=== PATIENT | male | born 1975 | race Caucasian/White ===

== ENCOUNTER 2016-06-07 09:17 | Day surgery (SDC) | payer OTHER ==
[~2016-06-07] VITALS: Ht 167.6 cm; Wt 106.1 kg
[2016-06-07] VITALS (9 sets, daily range): BP systolic 112–132; BP diastolic 58–75; PULSE 66–78; RESP 14–22; O2SAT 92–97
[~2016-06-07 09:17] MED LIST: ATOR20TA PO; Clindamycin Inj 600 MG in IV Premix 1 EACH IV SCH; LISI40TA PO; Lactated Ringer's 1,000 ML IV SCH; THYR30TA2 PO
[2016-06-07] MEDS ORDERED: MetoCLOpramide 5 mg/mL 2 mL Inj ONE (09:18)
[2016-06-07] MEDS ORDERED: Dexamethasone 4 mg/mL Inj ONE (09:18)
[2016-06-07] MEDS ORDERED: fentaNYL-PF 50 mCg/mL 2 mL Inj ONE (09:18)
[2016-06-07] MEDS ORDERED: Bupivacaine-MPF 0.5% W/EPI 30 mL Inj ONE (09:18)
[2016-06-07] MEDS ORDERED: Ondansetron 2 mg/mL 2 mL Inj ONE (09:18)
[2016-06-07] MEDS ORDERED: Propofol 10,000 mCg/mL 20 mL Inj ONE (09:18)
[2016-06-07] MEDS ORDERED: Lidocaine PF 1% 30 mL Inj ONE (09:18)
[2016-06-07] MEDS ORDERED: Clindamycin 600 mg/50 mL D5W Premix IV ONE (09:23)
[2016-06-07] MEDS ORDERED: Lactated Ringer's 1,000 ML IV ONE ×2 (10:02→15:20)
--- NOTE | 2016-06-07 11:40 | PCM.HPANE ---
Patient Data Date of Service: Jun 07, 2016 Surgeon Admitting Provider: Attending Provider:Valentin Myers MD Primary Care Physician:Other,Physician Other Provider:Estella Velasco Anesthesia Reason for Visit Right Shoulder Labral Tear Ht/WT & BMI Height (Feet): 5 Height (Inches): 6.00 Weight (Kilograms): 106.140 Body Mass Index 37.00 Allergies Coded Allergies: Penicillins (Verified Allergy, Unknown, hives, 06/02/16) brompheniramine (Verified Allergy, Unknown, 06/04/16) ENTERED FROM UNCODED ALLERGIES iodine (Verified Allergy, Unknown, 06/02/16) phenylpropanolamine (Verified Allergy, Unknown, 06/04/16) ENTERED FROM UNCODED ALLERGIES Uncoded Allergies: DIMETAPP (Allergy, Unknown, 06/02/16) Past Anesthesia History Anesthesia History: Denies:: Anesthesia Reactions Diabetes History Hx Diabetes?: No MRSA MRSA: No Medications Hypertension Medication: Yes Home Meds Incl Beta Harmeet: No Reported Medications Lisinopril 40 Mg [id number] Mg PO DAILY 30 Days Ref 0 06/02/16 Atorvastatin (Lipitor)20 Mg [id number] Mg PO DAILY Ref 0 06/02/16 Thyroid,Pork (Lysite Thyroid)30 Mg [id number] Mg PO DAILY 06/02/16 History History of ENT Problems?: No Hx of Heart Problems?: Yes Cardiovascular History: Positive for:: Hypertension Denies:: AICD Chest Pain Heart Murmur Irregular Heartbeat Pacemaker Peripheral Vascular Other Cardiac History: no sob; hyperlipidemia Hx of Respiratory Problem?: Yes Respiratory History: Positive for:: Use of C-PAP Machine Denies:: Asthma COPD Emphysema Oxygen Administration Pneumonia Tuberculosis Use of Inhalers / NEBS Other Resp Pertinent History: LAVERN compliant w/ CPAP Hx Neurologic Problems?: No Neurological History: Denies:: CVA Multiple Sclerosis Parkinson's Disease Seizures Hx of GI Problems?: Yes Gastrointestinal History: Positive for:: Diverticulitis (recent tx with ABX- course ended 05/14/16) Denies:: Gastroesphageal Reflux Gastrointestinal Bleeding Heartburn Hepatitis Hiatal Hernia Hx of Problems?: No Male Hx: Denies:: Prostate Problems Scrotal Mass Testicular Surgery Skin History: Denies:: History Skin Disorders? Pressure Ulcers Hx Musculoskeletal Problems?: Yes Musculoskeletal History: Positive for:: Musculoskeletal Trauma (right shoulder current admission problem) Hx of Psycho/Social Problems?: No Hx Surgeries?: Yes (RIH, thyroidectomy) Hx Any Other Health Problems?: Yes Other History: Positive for:: Thyroid Disease (hypothyroid) Denies:: Cancer Hx Diabetes: No Other Pertinent History: Gout Hx Substance Use: NoHave You Smoked inLast 12 mo: No Stop/Bang Treated for Sleep Apnea?: Yes Do You Have a CPAP Machine?: Yes S-Snoring: Do You Snore Loudly: No T-Tired: feel tired, fatigued: No O-Obsered: Observed not breath: Yes P-Blood Pressure: treated: Yes B- Body Mass Index > 35 kg/m2: No A- Age over 50: No N- Neck Large Circumference: No G- Gender Male: Yes LAVERN Total Score: 3 LAVERN Risk Assessment: High Risk, =/>3 Yes LAVERN Category 1: Yes Risk Assessment Category Category 1A: Patient has history of documented sleep apnea, and HAS NOT received any narcotic, sedative or anesthesia administration during this stay. Category 1B: Patient has history of documented sleep apnea, and HAS received any narcotic , sedative or anesthesia administration during this stay Category 2: Patient has SUSPECTED Obstructive Sleep Apnea, and HAS received any narcotic , sedative or anesthesia administration during this stay. Category 3: Patient has SUSPECTED Obstructive Sleep Apnea and HAS NOT received narcotic, sedative or anesthesia administration during this stay. Category 4: Outpatient in Procedural Areas with known sleep apnea or who screen positive for High Risk via the STOP/BANG questionnaire. Exam Exam Vital Signs Vital Signs Date Time Temp Pulse Resp B/P Pulse Ox O2 Delivery O2 Flow Rate FiO2 06/07/16 10:04 36.3 66 14 125/75 97 Room Air General Appearance: Alert, Oriented X3, Cooperative, No Acute Distress HEENT/AIRWAY: MP 2, Neck Movement (short, thick, FROM), Mouth Opening (>3), Other (tmd3) Lungs: Normal Air Movement Heart: Exam Unremarkable, Regular Rate/Rhythm, Normal S1, Normal S2, No Murmurs /Rubs/Gallops Meds/Labs/Diagnostics Admission Meds Current Medications Lactated Ringer's (Lr) 1,000 ml @ ud STK-MED ONCE IV Last administered on t 10:02; Start 06/07/16 at 10:02; Stop 06/07/16 at 10:03; Status DC Plan Impression Patient chart reviewed, patient interviewed and anesthestic plan with risks, benefits, and alternatives discussed, and informed consent obtained. NPO Status: 06/06@1800 ASA Physical Status: ASA2 Mod Systemic Disease Anesthetic Plan: GA, Regional Block (brachial plexus block - supraclavicular approach per surgeon request for post-op pain) Bene/Risks/Altern/Consents: Yes HP Complete Prior to Induction: Yes Franc Silva MD Jun 07, 2016 11:40
[2016-06-07] MEDS ORDERED: HYDROcodone-APAP 5-325 mg Tablet PO PRN (13:40)
[2016-06-07] MEDS ORDERED: Ketorolac 15 mg/mL Inj IVPUSH ONE (13:40)
[2016-06-07] MEDS ORDERED: Ropivacaine-PF 0.5% 30 mL Inj INJ ONE (14:01)
[2016-06-07] MEDS ORDERED: Lactated Ringer's 500 ML IV PRN (14:54)
[2016-06-07] MEDS ORDERED: Lactated Ringer's 1,000 ML IV SCH (14:54)
[2016-06-07] MEDS ORDERED: Phenylephrine 10,000 mCg/mL Inj IVPUSH PRN (14:55)
[2016-06-07] MEDS ORDERED: fentaNYL-PF 50 mCg/mL 2 mL Inj IVPUSH PRN (14:55)
[2016-06-07] MEDS ORDERED: Dexamethasone 4 mg/mL Inj IVPUSH PRN (14:55)
[2016-06-07] MEDS ORDERED: HYDROmorphone 1 mg/mL Inj IVPUSH PRN (14:55)
[2016-06-07] MEDS ORDERED: MetoCLOpramide 5 mg/mL 2 mL Inj IVPUSH PRN (14:55)
[2016-06-07] MEDS ORDERED: Ondansetron 2 mg/mL 2 mL Inj IVPUSH PRN (14:55)
[2016-06-07] MEDS ORDERED: EPHEDrine Sulfate 50 mg/mL Inj IVPUSH PRN (14:55)
--- NOTE | 2016-06-07 15:46 | PCM.ORTHOP ---
Orthopedic Operative Report Date of Service: Jun 07, 2016 Pre Operative Diagnosis Right shoulder anterior labral tear, impingement syndrome, acromioclavicular joint arthritis Post Operative Diagnosis Right shoulder anterior labral tear, impingement syndrome, acromioclavicular joint arthritis Procedure Right shoulder arthroscopy, labral repair, subacromial decompression, distal clavicle excision Surgeon Surgeon: Valentin Myers MD Assistants: Darlene Feldman Indication for Procedure Right shoulder instability, anterior labral tear, impingement syndrome Findings per dictation Details of Procedure STAFFING COORDINATOR SURGEON: During the operation, the services of physician surgical scheduler were medically indicated and necessary to provide exposure of the operative site for the surgical procedure and to maintain the limb in a proper position to carry out the operation safely and efficiently. Without the qualified medical laboratory assistant being present, it would have extended the operative procedure and made the procedure technically more difficult to perform. INDICATIONS: The patient is Ken Fuentes is a 40-year-old male who has developed recurrent instability of the right shoulder. X-rays show the glenohumeral joint to be well maintained. The risks, benefits, and alternatives of surgery were discussed with the patient. The risks included but were not limited to infection, bleeding, damage to vessels and nerves, loss of motion, continued pain, complications due to anesthesia including myocardial infarction, stroke, , etc. The patient stated understanding of the nature of the surgical procedure and gave written and verbal consent to proceed. PROCEDURE: The patient was brought into the operating room and placed supine on the operating room table. A supraclavicular block was placed in the right shoulder for postoperative pain management, followed by the administration of general anesthesia. Preoperative antibiotics was given The patient was then placed into the lateral decubitus position with the right side up. An axillary role was placed and the legs were padded as necessary to avoid pressure points. The patient was maintained in position with a beanbag evacuation device. A thorough examination of the right shoulder under anesthesia was performed. The patient had 120 degrees of forward elevation and 110 degrees of abduction. In 90 degrees of abduction the patient had a degrees of external rotation and 70 degrees of internal rotation. The right shoulder was then examined for stability. In neutral rotation there was 4/5 anterior instability. The right upper extremity was then prepped and draped in the usual fashion. The arm was suspended with a well-padded sleeve with eight pounds of balanced suspension in the arthroscopic position. A standard posterior portal was made inferior and medial to the posterior corner of the acromion. The incision was made only through skin. The trocar was advanced through the soft tissue with a blunt- tipped obturator. This was inserted into the glenohumeral joint without difficulty. The arthroscope was placed through the cannula and attached to the video monitor system. Inflow was achieved using the arthroscopic pump. The pressure was maintained at 35-40 mm of mercury throughout the entire procedure. Once the arthroscope confirmed visualization within the shoulder joint, it was advanced anteriorly into the rotator interval beneath the biceps tendon. A Wissinger kristy was then used to create the anterior portal from inside-out. A second anterior stab wound incision was made only through skin and an anterior cannula was placed. A routine arthroscopic survey was begun Survey: Anterior labral tear from 1:00 to 5:00 Complex surgical procedure: This was an extremely complex surgical procedure which took approximately 30-40% longer to complete than a standard repair. Without the use of a qualified first aid director, this surgical procedure would have taken even considerably longer and been unable to be performed arthroscopically Anterior labral bankart repair, no remplissage: Attention was then directly toward anterior labral repair. An anterior mid-glenoid portal was established with an outside in technique just above the subscapualris. With the arthroscope in the anterior superior viewing portal there was evidence of significant tearing of the anterior inferior labrum, Bankart lesion. Using a Liberator elevator and a blunt tipped [place] bar, a full thickness capsulolabral elevation was carried out down to the 6 o'clock position. The fibers of the subscapularis were well seen. The medial neck of the glenoid was well maintained and lightly abraded using the motorized shaver. The articular cartilage margin along with the anterior glenoid rim was lightly debrided using a curette. The firstanchor was placed in the 5:00 position using the curved computer engineering technologist for the suturetak anchor. The anchor was deployed and seated with excellent secure fixation. The sutures from this anchor were then passed beginning with the 1st stitch at the 5:30 position and advancing the tissue from inferior to superior and from medial to lateral. This was a full thickness labral bite which restored an excellent buttress inferiorly. After the 1st labral stitch was tied and the humeral head was well centralized on the glenoid. The stitch from the anterior inferior most anchor was passed taking a plication bite as well as a full thickness labral bite creating a hospital corner repair with excellent secure fixation. 2 additional suturetak anchors were placed at more proximally with excellent fixation purchase. The remaining sutures were similarly passed, placing full thickness labral bites as well as capsular advancement, advancing the anterior inferior capsule and labrum from inferior to superior and medial to lateral. There appeared to be excellent judaism of the anterior labral bumper. The drive-through sign was eliminated. The humeral head appeared to be well centralized, visualizing from both anterior superior and the posterior cannula. There was excellent judaism of the bumper and no further evidence for instability. Shiela procedure: Within the subacromial space there was marked fraying on the undersurface of the coracoacromial ligament consistent with impingement. A decision was thus made to proceed with arthroscopic subacromial decompression. Using an RF wand and a motorized shaver the coracoacromial ligament was recessed from the anterior acromial edge. An orientation trough was made along the lateral margin of the acromion, from the anterior corner back to the posterior margin of the AC joint. A sequential subacromial smoothing was carried out, removing approximately 3 mm of bone corresponding to the preoperative radiographs. Once completed, the AC joint capsule was opened. There was inferior spurring as well as synovitis and arthritic changes at the AC joint and a decision was made to proceed with distal clavicle excision. Using a motorized bur working initially from posteriorly and then anteriorly, the outer 10 mm of the distal clavicle were excised. The arthroscope was then positioned anteriorly within the AC resection site confirming an excellent level of resection. Closure: The arm was then taken out of traction. The instability both in neutral rotation and in abduction external rotation was eliminated. The humeral head was well centralized. The arthroscope was then used to visualize the repair both from the anterior superior viewing portal and the posterior viewing portal which showed the humeral head to be well balanced with excellent and appropriate tissue tension. The glenohumeral joint was then copiously irrigated with an additional liter of lactated Ringers solution and excess fluid was drained. The arthroscopic portals were closed with #4-0 Nylon and Steri-Strips. A dry sterile dressing was applied, followed by a neutral rotation sling. The patient was awakened in the Operating Room and transported to the Recovery Room in satisfactory condition. He appeared to tolerate the procedure well. There were no complications noted. Grafts, Implants: Implants-See Implant Record Complications There were no periprocedural complications identified. Condition Stable Anesthetic Administered: GA Catheters: None Output, Estimated Blood Loss: 5 Blood Admin during surgery: No Surgical Cast or Splint: Shoulder Immobilizer Surgical Specimen Removed: No Specimen sent to Pathology: No copies to: Valentin Myers MD, Christopher L MD Jun 07, 2016 15:46
--- NOTE | 2016-06-07 17:16 | PCM.ANEP2 ---
Post Anesthesia Evaluation ASA/CMS Post Anesthesia VS in Patient's Normal Range?: Yes Resp Stable; Airway Patent?: Yes CV Function & Hydration Stable: Yes Mental Status Recovered?: Yes Pain control Satisfactory?: Yes N/V Control Satisfactory?: Yes Franc Silva MD Jun 07, 2016 17:16
--- NOTE | 2016-06-07 17:16 | PCM.ANEP1 ---
Post Anesthesia Phase 1 PACU Phase 1 Assessment Date of Service: Jun 07, 2016 Vital Signs Vital Signs Date Time Temp Pulse Resp B/P Pulse Ox O2 Delivery O2 Flow Rate FiO2 06/07/16 17:10 95 Room Air 06/07/16 16:40 71 16 118/68 93 Room Air 06/07/16 16:21 36.2 74 16 115/64 92 Room Air 06/07/16 16:18 70 22 114/69 94 Nasal Cannula 2 06/07/16 16:07 72 22 112/72 94 Nasal Cannula 2 06/07/16 16:01 78 22 132/71 94 Nasal Cannula 2 06/07/16 15:50 72 18 112/61 97 Simple Mask 8 06/07/16 15:43 36.2 69 20 122/58 96 Simple Mask 8 06/07/16 10:04 36.3 66 14 125/75 97 Room Air Anesthetic Administered: GA Level of Alertness: Awake, talking WEST's with Equal Strength: No (brachial plexus block - R) Pain: No Pain Scale Score: 0 Nausea or Vomiting: No Oxygen Delivery: Simple Mask Lungs: Normal Air Movement Franc Silva MD Jun 07, 2016 17:16
[2016-07-05] MEDS ORDERED: METR500T PO (11:28)
[2016-07-05] MEDS ORDERED: ONDA4TAB6 PO (11:28)
[2016-07-05] MEDS ORDERED: CIPR-198 PO (11:28)
[2016-07-05] MEDS ORDERED: HYDR-4003 PO (11:28)
[2016-07-05] MEDS ORDERED: CEPH500C PO (11:28)
== END 2016-06-07 23:59 | disposition home or self-care (01) ==
LOC: SAS 09:17
PROVIDERS: ATTEND Orthopaedic Surgery
DX: S43.431A Superior glenoid labrum lesion of right shoulder, initial encounter (principal); S46.001A Unspecified injury of muscle(s) and tendon(s) of the rotator cuff of right shoulder, initial encounter; M75.41 Impingement syndrome of right shoulder; M25.511 Pain in right shoulder; X50.0XXA Overexertion from strenuous movement or load, initial encounter; Y93.9 Activity, unspecified; Y92.9 Unspecified place or not applicable; I10 Essential (primary) hypertension; M10.9 Gout, unspecified; G47.30 Sleep apnea, unspecified; K76.9 Liver disease, unspecified
CPT/HCPCS: 29807; 29824; 29826; 76942; C1713; J1100; J1170; J2250; J2405; J2765; J3010; J7120

== ENCOUNTER 2016-07-06 07:38 | Day surgery (SDC) | payer OTHER ==
[~2016-07-06] VITALS: Ht 167.6 cm; Wt 102.0 kg
--- NOTE | 2016-07-06 07:17 | PCM.HPANE ---
Patient Data Surgeon Admitting Provider: Attending Provider:Arcenio Yin MD Primary Care Physician:Other,Physician Other Provider:Estella Velasco Anesthesia Reason for Visit Diverticulosis Of Large Intestine Ht/WT & BMI Body Mass Index Allergies Coded Allergies: Penicillins (Verified Allergy, Unknown, hives, 07/06/16) brompheniramine (Verified Allergy, Unknown, 07/06/16) ENTERED FROM UNCODED ALLERGIES iodine (Verified Allergy, Unknown, 07/06/16) phenylpropanolamine (Verified Allergy, Unknown, 07/06/16) ENTERED FROM UNCODED ALLERGIES Uncoded Allergies: DIMETAPP (Allergy, Unknown, 06/02/16) Past Anesthesia History Anesthesia History: Denies:: Anesthesia Reactions Diabetes History Hx Diabetes?: No MRSA MRSA: No Medications Reported Medications Ondansetron (Zofran)4 Mg Tablet4 Mg PO QID PRN For Nausea 07/05/16 Cephalexin 500 Mg Irzzsge383 Mg PO TID #40 CAPSULE Ref 0 07/05/16 Hydrocodone-Acetaminophen 5-325 mg 1 Each Tablet1 Tablet PO QID PRN For Pain Ref 0 07/05/16 Ciprofloxacin 500 Mg Yuciam653 Mg PO BID 07/05/16 Lisinopril 40 Mg Wkuysa18 Mg PO DAILY 30 Days Ref 0 06/02/16 Atorvastatin (Lipitor)20 Mg Fclvjz74 Mg PO DAILY Ref 0 06/02/16 Thyroid,Pork ([place] Thyroid)30 Mg Plqnsd203 Mg PO DAILY 06/02/16 Discontinued Reported Medications Metronidazole (Flagyl)500 Mg Xkvauv058 Mg PO BID 07/05/16 History History of ENT Problems?: No Hx of Heart Problems?: Yes Cardiovascular History: Positive for:: Hypertension Denies:: AICD Chest Pain Heart Murmur Irregular Heartbeat Pacemaker Hx of Respiratory Problem?: Yes Respiratory History: Positive for:: Use of C-PAP Machine Denies:: Asthma COPD Emphysema Oxygen Administration Pneumonia Tuberculosis Hx Neurologic Problems?: No Neurological History: Denies:: CVA Multiple Sclerosis Parkinson's Disease Seizures Hx of GI Problems?: Yes Gastrointestinal History: Positive for:: Diverticulitis (recent tx with ABX- course ended 05/14/16) Denies:: Gastroesphageal Reflux Gastrointestinal Bleeding Heartburn Hepatitis Hiatal Hernia Hx of Problems?: No Male Hx: Denies:: Prostate Problems Scrotal Mass Testicular Surgery Skin History: Denies:: History Skin Disorders? Pressure Ulcers Hx Musculoskeletal Problems?: Yes Musculoskeletal History: Positive for:: Musculoskeletal Trauma (right shoulder current admission problem) Hx of Psycho/Social Problems?: No Hx Surgeries?: Yes (RIH, thyroidectomy) Hx Any Other Health Problems?: Yes Other History: Positive for:: Thyroid Disease (hypothyroid) Denies:: Cancer Hx Diabetes: No Hx Substance Use: NoHave You Smoked inLast 12 mo: No Stop/Bang Treated for Sleep Apnea?: Yes Do You Have a CPAP Machine?: Yes LAVERN Risk Assessment: High Risk, =/>3 Yes Risk Assessment Category Category 1A: Patient has history of documented sleep apnea, and HAS NOT received any narcotic, sedative or anesthesia administration during this stay. Category 1B: Patient has history of documented sleep apnea, and HAS received any narcotic , sedative or anesthesia administration during this stay Category 2: Patient has SUSPECTED Obstructive Sleep Apnea, and HAS received any narcotic , sedative or anesthesia administration during this stay. Category 3: Patient has SUSPECTED Obstructive Sleep Apnea and HAS NOT received narcotic, sedative or anesthesia administration during this stay. Category 4: Outpatient in Procedural Areas with known sleep apnea or who screen positive for High Risk via the STOP/BANG questionnaire. Exam Exam General Appearance: Alert, Oriented X3, Cooperative, No Acute Distress HEENT/AIRWAY: MP 2 Lungs: Clear to Auscultation, Normal Air Movement Heart: Exam Unremarkable, Regular Rate/Rhythm, No Murmurs/Rubs/Gallops Plan Impression Patient chart reviewed, patient interviewed and anesthestic plan with risks, benefits, and alternatives discussed, and informed consent obtained. NPO Status: 06/06/16 ASA Physical Status: ASA2 Mod Systemic Disease Anesthetic Plan: MAC Bene/Risks/Altern/Consents: Yes HP Complete Prior to Induction: Yes Ryan Chan MD Jul 06, 2016 07:17
[~2016-07-06 07:38] MED LIST changes: +CEPH500C PO; +CIPR-198 PO; -Clindamycin Inj 600 MG in IV Premix 1 EACH IV SCH; +HYDR-4003 PO; +Lactated Ringer's 1,000 ML IV ONE; -Lactated Ringer's 1,000 ML IV SCH; +METR500T PO; +ONDA4TAB6 PO
[2016-07-06] MEDS ORDERED: fentaNYL-PF 50 mCg/mL 2 mL Inj ONE (07:39)
[2016-07-06] MEDS ORDERED: Propofol 10,000 mCg/mL 20 mL Inj ONE (07:39)
[2016-07-06 07:55] VITALS: BP 134/88; PULSE 64; RESP 14; O2SAT 98
[2016-07-06] MEDS ORDERED: Lactated Ringer's 1,000 ML IV SCH (08:47)
[2016-07-06] MEDS ORDERED: Ondansetron 2 mg/mL 2 mL Inj IVPUSH PRN (08:50)
[2016-07-06] MEDS ORDERED: MetoCLOpramide 5 mg/mL 2 mL Inj IVPUSH PRN (08:50)
[2016-07-06 09:03] VITALS: BP 133/77; PULSE 60; RESP 12; O2SAT 94
[2016-07-06 09:12] VITALS: BP 129/79; PULSE 63; RESP 12; O2SAT 94
--- NOTE | 2016-07-06 09:25 | ENDO ---
[address] [address] ENDOSCOPY PROCEDURE PATIENT: ELIZABETH MASCORRO : 1975 MR#: [id number] ADMIT: 07/06/2016 JOB ID: [id number] PROCEDURE: Colonoscopy with cold forceps polypectomy. INDICATIONS: A 40-year-old male with a recent spell of diverticulitis. He had another episode of pain in the left lower quadrant which has since resolved, but he was given a 2nd round of antibiotics. A 2nd CAT scan, however, did not reveal any evidence of diverticulitis. EQUIPMENT: [employer]-H180-AL. SEDATION: Monitored anesthesia as provided by Dr. Ryan Chan. COMPLICATIONS: None identified. BOWEL PREPARATION: Fair, adequate exam. PROCEDURE INFORMATION: After the risks and benefits were explained, written and verbal informed consent was obtained. The patient was brought into the endoscopy suite and placed into the left lateral decubitus position. Sedation was achieved using the above-stated medications with the addition of oxygen via nasal cannula. A digital rectal examination accomplished. No significant pathology appreciated. The scope was introduced into the rectum and advanced to the cecum as identified by the appendiceal orifice and ileocecal valve. The terminal ileum was briefly accessed. The scope was then slowly withdrawn to carefully examine the mucosa for any defects or lesions. Retroflexed views were avoided in the rectum. Multiple direct views were made through the dentate line for exclusion of pathology. The colon was decompressed, the scope removed from the patient who tolerated the procedure well. FINDINGS: Mild diverticulosis in the left colon. No evidence of diverticulitis. There was a very diminutive rectal polyp seen and removed with cold forceps. This measured out about 2 mm. The terminal ileum was visually normal. No other pathology appreciated throughout. ENDOSCOPIC DIAGNOSES: 1. Minimal diverticulosis. 2. Rectal polyp. RECOMMENDATIONS: 1. Await histopathology. 2. If this is an adenoma, repeat colonoscopy in five years. Otherwise repeat colonoscopy at age 51. 3. The patient is encouraged to manipulate stool consistency and frequency with fiber supplementation. I have suggested 2 tablespoons of ground flaxseed fiber mixed with 8 ounces of water or juice at least once a day.
--- NOTE | 2016-07-06 09:29 | PCM.ANEP1 ---
Post Anesthesia Phase 1 PACU Phase 1 Assessment Vital Signs Vital Signs Date Time Temp Pulse Resp B/P Pulse Ox O2 Delivery O2 Flow Rate FiO2 07/06/16 09:12 63 12 129/79 94 Room Air 07/06/16 09:03 36.4 60 12 133/77 94 Room Air 07/06/16 07:55 36.6 64 14 134/88 98 Room Air Anesthetic Administered: MAC Level of Alertness: Awake, talking WEST's with Equal Strength: Yes Pain: No Nausea or Vomiting: No Oxygen Delivery: Nasal Cannula Lungs: Clear to Auscultation, Normal Air Movement Dermatome Level: Full Sensation Ryan Chan MD Jul 06, 2016 09:29
--- NOTE | 2016-07-06 09:30 | PCM.ANEP2 ---
Post Anesthesia Evaluation ASA/CMS Post Anesthesia VS in Patient's Normal Range?: Yes Resp Stable; Airway Patent?: Yes CV Function & Hydration Stable: Yes Mental Status Recovered?: Yes Pain control Satisfactory?: Yes N/V Control Satisfactory?: Yes Ryan Chan MD Jul 06, 2016 09:30
--- NOTE | 2016-07-13 16:00 | PATH ---
SURGICAL PATHOLOGY Attending Physician:Peña Mckeon CASE STATUS: Signed Out * Amended * PATIENT NAME: ELIZABETH MASCORRO PID: [id number] : 1975 DATE COLLECTED:07/06/2016 17:30 SPECIMEN: Rectum, Biopsy CLINICAL HISTORY: 1). RECTAL POLYPS FINAL DIAGNOSIS: Rectum, Polyp, Biopsy: Superficial portion of colorectal mucosa with mildly hyperplastic mucosal change. ICD K62.1 This case was reviewed and interpreted by Dr. Alyson Saldaña. The final diagnosis is unchanged. This amendment is issued in order for the report to cross the interface and be available in the hospital electronic medical record. NOTE: Additional levels through the block are non-contributory. GROSS DESCRIPTION: The specimen is sublabeled "rectal polyp" and consists of a 0.2 x 0.2 x 0.2 CM portion of tissue which is entirely submitted in one cassette. 07/06/2016 [facility] [place]-9 CODES: CPT CODES: 1: 21032 AMENDMENT(S): Amended: 07/13/2016 by Stefani Meehan Reason:Miscellaneous The final diagnosis is unchanged. This amendment is issued in order for the report to cross the interface and be available in the hospital electronic medical record Previous Signout Date: 07/08/2016 Electronically Signed Out Lynette Perez MD [facility] Pathology [facility] [address], [place] [address] Technical component performed at [facility], [address] [place] [address] [address], [place], [address]
== END 2016-07-06 23:59 | disposition home or self-care (01) ==
LOC: END 07:38
PROVIDERS: ATTEND Internal Medicine Gastroenterology
DX: K57.30 Diverticulosis of large intestine without perforation or abscess without bleeding (principal); K62.1 Rectal polyp; I10 Essential (primary) hypertension; G47.33 Obstructive sleep apnea (adult) (pediatric); E78.5 Hyperlipidemia, unspecified; E03.9 Hypothyroidism, unspecified; Z85.850 Personal history of malignant neoplasm of thyroid
CPT/HCPCS: 45380; 88305; J2250; J3010; J7120

== ENCOUNTER 2016-09-01 07:14 | Day surgery (SDC) | payer OTHER ==
[2016-09-01] VITALS (10 sets, daily range): BP systolic 124–142; BP diastolic 69–115; PULSE 54–100; RESP 14–21; O2SAT 93–99
[~2016-09-01] VITALS: Ht 167.6 cm; Wt 102.6 kg
[~2016-09-01 07:14] MED LIST changes: -CEPH500C PO; -CIPR-198 PO; +Clindamycin 900 mg/50 mL D5W IV SCH; -HYDR-4003 PO; -Lactated Ringer's 1,000 ML IV ONE; -METR500T PO; -ONDA4TAB6 PO
[2016-09-01] MEDS ORDERED: Ondansetron 2 mg/mL 2 mL Inj ONE (07:15)
[2016-09-01] MEDS ORDERED: Phenylephrine/NS 100 mCg/mL 10 mL Syringe IVPUSH ONE (07:15)
[2016-09-01] MEDS ORDERED: Propofol 10,000 mCg/mL 20 mL Inj ONE (07:15)
[2016-09-01] MEDS ORDERED: Neostigmine 1 mg/mL 10 mL Inj ONE (07:15)
[2016-09-01] MEDS ORDERED: Glycopyrrolate 0.2 MG/ML 1mL Inj ONE (07:15)
[2016-09-01] MEDS ORDERED: Dexamethasone 4 mg/mL Inj ONE (07:15)
[2016-09-01] MEDS ORDERED: fentaNYL-PF 50 mCg/mL 2 mL Inj ONE (07:15)
[2016-09-01] MEDS ORDERED: MetoCLOpramide 5 mg/mL 2 mL Inj ONE (07:15)
[2016-09-01] MEDS ORDERED: Rocuronium 10 mg/mL 5 mL Inj ONE (07:15)
[2016-09-01] MEDS: Lactated Ringer's 1,000 ML IV SCH ×2 (08:17→09:00)
--- NOTE | 2016-09-01 10:36 | PCM.ORTHOP ---
Orthopedic Operative Report Date of Service: September 01, 2016 Pre Operative Diagnosis Left shoulder instability, anterior labral periosteal sleeve avulsion, acromioclavicular joint arthritis Post Operative Diagnosis Same Procedure Left shoulder arthroscopy, anterior labral repair, distal clavicle excision Surgeon Surgeon: Valentin Myers MD Assistants: Darlene Feldman Indication for Procedure Left shoulder labral tear with instability Findings Per dictation Details of Procedure GLASSWORKER SURGEON: During the operation, the services of physician surgical supervisor were medically indicated and necessary to provide exposure of the operative site for the surgical procedure and to maintain the limb in a proper position to carry out the operation safely and efficiently. Without the qualified office administrative assistant being present, it would have extended the operative procedure and made the procedure technically more difficult to perform. INDICATIONS: The patient is a Ken Fuentes who is a 40-year-old male who has developed recurrent instability of the left shoulder. X-rays show the glenohumeral joint to be well maintained. The risks, benefits, and alternatives of surgery were discussed with the patient. The risks included but were not limited to infection, bleeding, damage to vessels and nerves, loss of motion, continued pain, complications due to anesthesia including myocardial infarction , stroke, , etc. The patient stated understanding of the nature of the surgical procedure and gave written and verbal consent to proceed. PROCEDURE: The patient was brought into the operating room and placed supine on the operating room table. A interscalene block was placed in the left shoulder for postoperative pain management, followed by the administration of general anesthesia. clindamycin IV was given The patient was then placed into the lateral decubitus position with the left side up. An axillary role was placed and the legs were padded as necessary to avoid pressure points. The patient was maintained in position with a beanbag evacuation device. A thorough examination of the left shoulder under anesthesia was performed. The patient had 150 degrees of forward elevation and 120 degrees of abduction. In 90 degrees of abduction the patient had 90 degrees of external rotation and 75 degrees of internal rotation. The left shoulder was then examined for stability. In neutral rotation there was 4/5 anterior instability. The left upper extremity was then prepped and draped in the usual fashion. The arm was suspended with a well-padded sleeve with eight pounds of balanced suspension in the arthroscopic position. A standard posterior portal was made inferior and medial to the posterior corner of the acromion. The incision was made only through skin. The trocar was advanced through the soft tissue with a blunt- tipped obturator. This was inserted into the glenohumeral joint without difficulty. The arthroscope was placed through the cannula and attached to the video monitor system. Inflow was achieved using the Sharetivity arthroscopic pump. The pressure was maintained at 35-40 mm of mercury throughout the entire procedure. Once the arthroscope confirmed visualization within the shoulder joint, it was advanced anteriorly into the rotator interval beneath the biceps tendon. A Wissinger kristy was then used to create the anterior portal from inside -out. A second anterior stab wound incision was made only through skin and an anterior cannula was placed. A routine arthroscopic survey was begun Survey: Anterior labral periosteal sleeve avulsion with labral detachment from 7 :00 to 12:00, intact biceps with no fraying or tear and synovitis, no chondromalacia noted. Complex surgical procedure: This was an extremely complex surgical procedure which took approximately 30-40% longer to complete than a standard repair. Without the use of a qualified financial assistant, this surgical procedure would have taken even considerably longer and been unable to be performed arthroscopically Anterior labral bankart repair, no remplissage: Attention was then directly toward anterior labral repair. An anterior mid-glenoid portal was established with an outside in technique just above the subscapularis. With the arthroscope in the anterior superior viewing portal there was evidence of significant tearing of the anterior inferior labrum, Bankart lesion. Using a Liberator elevator and a blunt tipped chinik bar, a full thickness capsulolabral elevation was carried out down to the 6 o'clock position. The fibers of the subscapularis were well seen. The medial neck of the glenoid was well maintained and lightly abraded using the motorized shaver. The articular cartilage margin along with the anterior glenoid rim was lightly debrided using a curette. The first anchor was placed in the 7:00 position using the curved dump truck driver for the suture markos anchor. The anchor was deployed and seated with excellent secure fixation. The sutures from this anchor were then passed beginning with the 1st stitch at the 7:30 position and advancing the tissue from inferior to superior and from medial to lateral. This was a full thickness labral bite which restored an excellent buttress inferiorly. After the 1st labral stitch was secured, the humeral head was well centralized on the glenoid. The bites from the anterior inferior most anchor was passed taking a plication bite as well as a full thickness labral bite creating a hospital corner repair with excellent secure fixation. An additional anchors was placed at more proximally with excellent fixation purchase. The remaining sutures were similarly passed, placing full thickness labral bites as well as capsular advancement, advancing the anterior inferior capsule and labrum from inferior to superior and medial to lateral. These were all secured, creating excellent loop and knot security. There appeared to be excellent spiritism of the anterior labral bumper. The drive-through sign was eliminated. The humeral head appeared to be well centralized, visualizing from both anterior superior and the posterior cannula. There was excellent spiritism of the bumper and no further evidence for instability. miguel procedure: Within the subacromial space there was minimal fraying on the undersurface of the coracoacromial ligament. A decision was thus made to forgo an arthroscopic subacromial decompression. Using an RF wand and a motorized shaver, the AC joint capsule was opened. There was inferior spurring as well as synovitis and arthritic changes at the AC joint and a decision was made to proceed with distal clavicle excision. Using a motorized bur working initially from posteriorly and then anteriorly, the outer 10 mm of the distal clavicle were excised. The arthroscope was then positioned anteriorly within the AC resection site confirming an excellent level of resection. Closure: The arm was then taken out of traction. The instability both in neutral rotation and in abduction external rotation was eliminated. The humeral head was well centralized. The arthroscope was then used to visualize the repair both from the anterior superior viewing portal and the posterior viewing portal which showed the humeral head to be well balanced with excellent and appropriate tissue tension. The glenohumeral joint was then copiously irrigated with an additional liter of lactated Ringers solution and excess fluid was drained. The arthroscopic portals were closed with #4-0 nylon and Steri-Strips. A dry sterile dressing was applied, followed by a neutral rotation sling. The patient was awakened in the Operating Room and transported to the Recovery Room in satisfactory condition. The patient appeared to tolerate the procedure well. There were no complications noted. Nonweightbearing to affected upper extremity. Please leave sling on at all times. You may remove sling 3 times a day to move the elbow wrist and fingers. Do not move your shoulder. Please keep the affected extremity elevated when possible. You may use ice and/or heat as needed for comfort. Follow-up in 2 weeks with me with for suture removal and Steri-Strip application. Follow-up with me at 6 weeks with progression of physical therapy as per my protocol (please ask me for protocol if needed). Follow-up with me before full release at 3 months postop. Grafts, Implants: Implants-See Implant Record Complications There were no periprocedural complications identified. Condition Stable Anesthetic Administered: GA Catheters: None Output, Estimated Blood Loss: 5 Blood Admin during surgery: No Surgical Cast or Splint: Shoulder Immobilizer Surgical Specimen Removed: No Specimen sent to Pathology: No copies to: Valentin Myers MD, Christopher L MD September 01, 2016 10:36 Surgical Specimen Removed: No Specimen sent to Pathology: No copies to: Valentin Myers MD, Christopher L MD September 01, 2016 10:36
[2016-09-01] MEDS ORDERED: Lactated Ringer's 500 ML IV PRN (11:14)
[2016-09-01] MEDS ORDERED: Lactated Ringer's 1,000 ML IV SCH (11:14)
--- NOTE | 2016-09-01 11:14 | PCM.HPANE ---
Patient Data Surgeon Admitting Provider: Attending Provider:Valentin Myers MD Primary Care Physician:Darryl Zimmerman Other Provider:Estella Velasco Anesthesia Reason for Visit Left Shoulder Labral Tear Ht/WT & BMI Height (Feet): 5 Height (Inches): 6 Weight (Kilograms): 102.6 Body Mass Index 36.00 Allergies Coded Allergies: Penicillins (Verified Allergy, Severe, hives, 08/31/16) acetaminophen (Verified Allergy, Severe, RASH, 08/31/16) hydrocodone (Verified Allergy, Severe, RASH, 08/31/16) Adhesives (Verified Allergy, Intermediate, rash, 09/01/16) brompheniramine (Verified Allergy, Unknown, UNKNOWN, 08/31/16) phenylpropanolamine (Verified Allergy, Unknown, UNKNOWN, 08/31/16) Uncoded Allergies: CHLORO PREP (Allergy, Intermediate, SEVERE RASH, 09/01/16) DIMETAPP (Allergy, Unknown, UNKNOWN, 08/31/16) Past Anesthesia History Anesthesia History: Denies:: Abnormal Airway, Anesthesia Reactions, Difficult Intubation, Fam Anesthesia Reaction, Fam Malignant Hypertherm, Malignant Hyperthermia Diabetes History Hx Diabetes?: No MRSA MRSA: No Medications Hypertension Medication: Yes (LISINOPRIL) Home Meds Incl Beta Harmeet: No Reported Medications Lisinopril 40 Mg [id number] Mg PO DAILY 30 Days Ref 0 06/02/16 Atorvastatin (Lipitor)20 Mg [id number] Mg PO DAILY Ref 0 06/02/16 Thyroid,Pork ([place] Thyroid)30 Mg [id number] Mg PO DAILY 06/02/16 Discontinued Reported Medications Ondansetron (Zofran)4 Mg Tablet4 Mg PO QID PRN For Nausea 07/05/16 Cephalexin 500 Mg [id number] Mg PO TID #40 CAPSULE Ref 0 07/05/16 Hydrocodone-Acetaminophen 5-325 mg 1 Each Tablet1 Tablet PO QID PRN For Pain Ref 0 07/05/16 Ciprofloxacin 500 Mg [id number] Mg PO BID 07/05/16 History History of ENT Problems?: No HEENT History: Denies:: Abnormal Airway Cataracts Difficult Intubation Dysphagia Glaucoma Hearing Problem Sinus Problem TMJ Denture Type: None Teeth Condition: Within Normal Limits Hx of Heart Problems?: Yes Cardiovascular History: Positive for:: Hypertension (HYPERLIPIDEMIA) Denies:: AICD Abdominal Aortic Aneurism Atrial Fibrillation Cardiac Surgery Chest Pain Congestive Heart Failure Coronary Artery Disease Edema Heart Murmur Irregular Heartbeat Pacemaker Peripheral Vascular Rheumatic Fever Thrombophlebitis Valvular Heart Disease Hx of Respiratory Problem?: Yes Respiratory History: Positive for:: Use of C-PAP Machine (LAVERN+ W/ CPAP) Denies:: Asthma COPD Chest Surgery Cough Dyspnea Emphysema Hemoptysis Oxygen Administration Pneumonia Pulmonary Embolism Tuberculosis Use of Inhalers / NEBS Hx Neurologic Problems?: No Neurological History: Denies:: Alzheimer's Disease CVA Dementia Dizziness Headaches Multiple Sclerosis Parkinson's Disease Peripheral Neuropathy Seizures TIA Hx of GI Problems?: Yes Gastrointestinal History: Denies:: Cirrhosis Diverticulitis Gall Bladder Disease Gastroesphageal Reflux Gastrointestinal Bleeding Heartburn Hepatitis Hiatal Hernia Liver Disease Rectal Bleeding Other GI Pertinent History: S/P RT INGUINAL HERNIA RPR Hx of Problems?: No Genitourinary History: Denies:: HX of Hemodialysis Kidney Stones Urinary Tract Infection HX of Peritoneal Dialysis: No Male Hx: Denies:: Prostate Problems Scrotal Mass Testicular Surgery Skin History: Denies:: History Skin Disorders? Pressure Ulcers Hx Musculoskeletal Problems?: Yes Musculoskeletal History: Positive for:: Musculoskeletal Trauma (S/P RT SHOULDER RPR LT SHOULDERLABRAL TEAR=CURRENT PROBLEM) Denies:: Back Injury Degenerative Joint Fibromyalgia Joint Replacement Myasthenia Gravis Osteoarthritis Rheumatoid Arthritis Systemic Lupus Hx of Psycho/Social Problems?: No Psycho Social History: Denies:: Anxiety Bipolar Disorder Hx Depression Suicide Attempt Hx Surgeries?: Yes (RT INGUINAL HERNIA RPR,RT SHOULDER RPR,THYROIDECTOMY) Hx Any Other Health Problems?: Yes Other History: Positive for:: Thyroid Disease (S/P THYROIDECTOMY) Denies:: Cancer Endocrine Disease Hospitalization History Blood Transfusions: Positive for:: Accept Blood Products? Denies:: Blood Transfuse Reaction Blood Transfusions Hx Diabetes: No Hx Alcohol Use: Yes (OCCASIONAL)Hx Substance Use: No Smoking Status: Never Smoker Have You Smoked inLast 12 mo: No Stop/Bang S-Snoring: Do You Snore Loudly: Yes T-Tired: feel tired, fatigued: Yes O-Obsered: Observed not breath: Yes P-Blood Pressure: treated: Yes B- Body Mass Index > 35 kg/m2: Yes A- Age over 50: No N- Neck Large Circumference: Yes G- Gender Male: Yes LAVERN Total Score: 7 Risk Assessment Category Category 1A: Patient has history of documented sleep apnea, and HAS NOT received any narcotic, sedative or anesthesia administration during this stay. Category 1B: Patient has history of documented sleep apnea, and HAS received any narcotic , sedative or anesthesia administration during this stay Category 2: Patient has SUSPECTED Obstructive Sleep Apnea, and HAS received any narcotic , sedative or anesthesia administration during this stay. Category 3: Patient has SUSPECTED Obstructive Sleep Apnea and HAS NOT received narcotic, sedative or anesthesia administration during this stay. Category 4: Outpatient in Procedural Areas with known sleep apnea or who screen positive for High Risk via the STOP/BANG questionnaire. Exam Exam Vital Signs Vital Signs Date Time Temp Pulse Resp B/P Pulse Ox O2 Delivery O2 Flow Rate FiO2 09/01/16 08:04 36.4 54 16 126/69 98 Room Air General Appearance: Alert, Oriented X3, Cooperative, No Acute Distress HEENT/AIRWAY: MP 2, Neck Movement (FROM), Mouth Opening (3 FBMO) Lungs: Clear to Auscultation, Normal Air Movement Heart: Exam Unremarkable, Regular Rate/Rhythm, No Murmurs/Rubs/Gallops Plan Impression Patient chart reviewed, patient interviewed and anesthestic plan with risks, benefits, and alternatives discussed, and informed consent obtained. NPO per Anesth. Guidelines: Yes ASA Physical Status: ASA2 Mod Systemic Disease Anesthetic Plan: GA, Regional Block (Left shoulder block risks/benefits discussed. Performed by Dr. Fitzgerald - see record) Bene/Risks/Altern/Consents: Yes HP Complete Prior to Induction: Yes Kushal Becerra MD September 01, 2016 08:09
[2016-09-01] MEDS ORDERED: Ondansetron 2 mg/mL 2 mL Inj IVPUSH PRN (11:15)
[2016-09-01] MEDS ORDERED: HYDROmorphone 1 mg/mL Inj IVPUSH PRN (11:15)
[2016-09-01] MEDS ORDERED: fentaNYL-PF 50 mCg/mL 2 mL Inj IVPUSH PRN (11:15)
[2016-09-01] MEDS ORDERED: Atropine 0.4 mg/mL Inj IVPUSH PRN (11:15)
[2016-09-01] MEDS ORDERED: MetoCLOpramide 5 mg/mL 2 mL Inj IVPUSH PRN (11:15)
[2016-09-01] MEDS ORDERED: Labetalol 5 mg/mL 4 mL Inj IV PRN (11:15)
--- NOTE | 2016-09-01 15:03 | PCM.ANEP1 ---
Post Anesthesia PACU Phase 1 Assessment Vital Signs Vital Signs Date Time Temp Pulse Resp B/P Pulse Ox O2 Delivery O2 Flow Rate FiO2 09/01/16 13:55 36.8 68 14 136/80 93 Room Air 09/01/16 12:54 36.8 64 16 130/81 95 Nasal Cannula 2 09/01/16 12:50 72 18 130/90 95 Nasal Cannula 2 09/01/16 12:40 36.4 77 20 124/92 96 Nasal Cannula 4 09/01/16 12:36 77 21 135/75 95 Nasal Cannula 4 09/01/16 12:25 100 18 142/81 99 Simple Mask 10 09/01/16 12:15 84 17 125/77 99 Simple Mask 10 09/01/16 12:10 86 19 135/115 99 Simple Mask 10 09/01/16 12:06 36.5 92 19 139/91 98 Simple Mask 10 09/01/16 08:04 36.4 54 16 126/69 98 Room Air Anesthetic Administered: GA Level of Alertness: Awake, talking WEST's with Equal Strength: Yes Pain: No Nausea or Vomiting: No CV Function & Hydration Stable: Yes Airway Device: Oxygen Delivery: Room Air Lungs: Clear to Auscultation, Normal Air Movement Dermatome Level: Full Sensation PACU Phase 2 Assessment Complications: No Follow up Care: N/A Patient Instructions Provided: N/A Kushal Becerra MD September 01, 2016 15:03
== END 2016-09-01 23:59 | disposition home or self-care (01) ==
LOC: SAS 07:14
PROVIDERS: ATTEND Orthopaedic Surgery
DX: S43.432A Superior glenoid labrum lesion of left shoulder, initial encounter (principal); S43.015A Anterior dislocation of left humerus, initial encounter; M25.312 Other instability, left shoulder; I10 Essential (primary) hypertension; E78.5 Hyperlipidemia, unspecified; G47.33 Obstructive sleep apnea (adult) (pediatric); E07.9 Disorder of thyroid, unspecified
CPT/HCPCS: 23455; 29807; 29824; 29826; 76942; C1713; J1100; J1885; J2250; J2370; J2405; J2710; J2765; J3010; J7120